=== PATIENT | male | born 1965 | race Caucasian/White ===

== ENCOUNTER → 2016-04-15 | Outpatient (REF) | payer BC | LOC: M LAB REF 16:26 | PROVIDERS: ATTEND Nurse Practitioner Adult Health | DX: F52.21 Male erectile disorder (principal) ==

== ENCOUNTER → 2016-04-16 | Outpatient (REF) | payer BC | LOC: M LAB REF 16:24 | PROVIDERS: ATTEND Nurse Practitioner Adult Health | DX: N39.0 Urinary tract infection, site not specified (principal) ==

== ENCOUNTER → 2016-10-12 | Outpatient (REF) | payer BC, OTHER ==
[2016-10-14 00:06] LABS: Lyme Disease IgG/IgM Antibodie <0.91 ISR (0.00-0.90); Lyme Disease IgM Ab Quantitati <0.80 index (0.00-0.79)
== END ==
LOC: M LAB REF 13:28
PROVIDERS: ATTEND Nurse Practitioner Adult Health
DX: Z11.59 Encounter for screening for other viral diseases (principal); W57.XXXA Bitten or stung by nonvenomous insect and other nonvenomous arthropods, initial encounter; X58.XXXA Exposure to other specified factors, initial encounter; Y93.9 Activity, unspecified; Y92.9 Unspecified place or not applicable; Y99.8 Other external cause status

== ENCOUNTER → 2017-12-01 | Outpatient (REF) | payer OTHER ==
[2017-12-01 14:42] LABS: FERRITIN 144 NG/ML (26-388); IRON (FE) 199 UG/DL (65-175)
[2017-12-03 17:22] LABS: PERCENT SATURATION 56.5 % (19.7-50.0); TOTAL IRON BINDING CAPACITY 352 UG/DL (250-450)
== END ==
LOC: M LAB REF 13:49
DX: R74.0 Nonspecific elevation of levels of transaminase and lactic acid dehydrogenase [LDH] (principal)

== ENCOUNTER → 2018-01-07 | Outpatient (REF) | payer OTHER ==
[2018-01-07 17:32] LABS: IRON (FE) 117 UG/DL (65-175)
== END ==
LOC: M LAB REF 16:59
DX: R79.0 Abnormal level of blood mineral (principal)

== ENCOUNTER → 2018-05-24 | Outpatient (CLI) | payer OTHER ==
[~2018-05-24] MED LIST: ASPI1TAB PO; LISI-538 PO; MOTR200T44 PO; TURM500C PO
--- NOTE | 2018-05-25 02:43 | REP ---
Clinical: Right hand pain. Technique: AP, lateral, bilateral oblique views of the right hand. Findings: Osseous structures, joint spaces, and surrounding soft tissues are normal for age. No overt arthritic changes are appreciated. No acute fracture dislocation. No periarticular or soft tissue calcifications identified. No subcutaneous emphysema or radiodense foreign body. Impression: Age-appropriate right hand radiographs. No obvious acute pathology by radiographic evaluation. Electronically Signed by Garrett Calhoun MD 05/25/2018 02:35 A
== END ==
LOC: M RAD 12:47
PROVIDERS: ATTEND Internal Medicine
DX: M79.641 Pain in right hand (principal)

== ENCOUNTER 2018-07-15 02:51 | Emergency (ER) | payer OTHER ==
[~2018-07-15] VITALS: Ht 182.9 cm; Wt 85.0 kg
[~2018-07-15 02:51] MED LIST changes: -ASPI1TAB PO; +ASPI81TA26 PO
[2018-07-15] MEDS ORDERED: VITAD1000T PO (02:55)
[2018-07-15 03:26] LABS: BASO % 0.6 % (0.0-1.0); EOS # 0.5 10^3/uL (0.0-0.50); HEMATOCRIT 45.3 % (42.0-52.0); HEMOGLOBIN 14.5 g/dl (13.5-17.5); LYMPH % 43.8 % (24.0-44.0); MEAN CORPUSCULAR HEMOGLOBIN 30.5 pg (27.0-33.0); MEAN CORPUSCULAR VOLUME 95.2 fl (80.0-96.0); MONO # 0.8 10^3/uL (0.0-0.8); MONO % 11.6 % (0.0-5.0); NEUTROPHILS # 2.5 10^3/uL (1.8-7.7); NEUTROPHILS % 36.9 % (36.0-66.0); PLATELET COUNT, AUTOMATED 275 10^3/uL (150-450); RED BLOOD COUNT 4.76 10^6/uL (4.30-6.10); WHITE BLOOD COUNT 6.9 10^3/uL (4.0-10.0)
[2018-07-15] MEDS ORDERED: ONDANSETRON 4MG/2ML VIAL (J2405) IV ONE (03:30)
[2018-07-15] MEDS ORDERED: MORPHINE 4 MG/ML 1ML VIAL/SYRINGE (J2270) IV ONE (03:30)
[2018-07-15 03:54] LABS: ALBUMIN 4.3 GM/DL (3.2-5.2); ALT/SGPT 34 U/L (12-78); BILIRUBIN,DIRECT < 0.1 MG/DL (0.0-0.2); BILIRUBIN,TOTAL 0.2 MG/DL (0.2-1.0); BLOOD UREA NITROGEN 26 MG/DL (7-18); CALCIUM LEVEL 10.2 MG/DL (8.5-10.1); CARBON DIOXIDE LEVEL 29 MEQ/L (21-32); CHLORIDE LEVEL 107 MEQ/L (98-107); CREATININE FOR GFR 1.25 MG/DL (0.70-1.30); GLOMERULAR FILTRATION RATE > 60.0 (>56); GLUCOSE, FASTING 123 MG/DL (70-100); LIPASE 359 U/L (73-393); POTASSIUM SERUM 3.9 MEQ/L (3.5-5.1); SODIUM LEVEL 143 MEQ/L (136-145); TOTAL PROTEIN 7.5 GM/DL (6.4-8.2)
[2018-07-15] MEDS ORDERED: KETOROLAC 30 MG/ML VIAL (J1885) IV ONE (04:15)
--- NOTE | 2018-07-15 05:05 | REPVR ---
EXAM: CT Abdomen and Pelvis Without Contrast EXAM DATE/TIME: 07/15/2018 4:13 AM CLINICAL HISTORY: 52 years old, male; Abdominal pain; Flank; Right; Additional info: Flank pain, hematuria TECHNIQUE: Imaging protocol: Axial computed tomography images of the abdomen and pelvis without contrast. Coronal and sagittal reformatted images were created and reviewed. Radiation optimization: All CT scans at this facility use at least one of these dose optimization techniques: automated exposure control; mA and/or kV adjustment per patient size (includes targeted exams where dose is matched to clinical indication); or iterative reconstruction. COMPARISON: No relevant prior studies available. FINDINGS: ABDOMEN: Liver: Normal. No mass. Gallbladder and bile ducts: Status post cholecystectomy. There is no biliary ductal dilatation. Pancreas: Normal. No ductal dilation. Spleen: Normal. No splenomegaly. Adrenals: Normal. No mass. Kidneys and ureters: There is a 2 mm stone in the distal right ureter with moderate proximal hydronephrosis and hydroureter. There is a 4 mm right upper renal pole stone. There is a 1.8 cm posterior right renal lesion measuring higher than simple fluid and apparently isodense to the kidney parenchyma. There is a focal mild contour deformity in the right kidney (axial image 44). There is focal contour deformity in the left kidney on axial image 35 possibly a cyst. There is a 1.2 cm left renal cyst (axial image 36). Stomach and bowel: There is suggestion of mild colonic wall thickening. Appendix: No evidence of appendicitis. PELVIS: Bladder: The urinary bladder is underdistended limiting its evaluation. Reproductive: Unremarkable as visualized. ABDOMEN and PELVIS: Intraperitoneal space: Normal. No free air. No significant fluid collection. Bones/joints: There is T11-T12 posterior disc osteophyte complex formation. Soft tissues: Unremarkable. Vasculature: Normal. No abdominal aortic aneurysm. Lymph nodes: Normal. No enlarged lymph nodes. IMPRESSION: 1. 2 mm distal right ureteral stone with moderate proximal hydronephrosis. 2. 4 mm right upper renal pole stone. 3. 1.2 cm simple appearing left renal cyst. 4. 1.8 cm posterior right renal lesion measuring higher than simple fluid density in addition to 2 focal areas of contour deformities in the right and left kidneys. Further characterization with MRI with contrast is suggested. 5. Status post cholecystectomy. 6. Questionable mild colonic wall thickening without pericolonic inflammatory changes. A mild inflammatory process/atelectasis cannot be completely excluded. Correlate with patient's clinical history. COMMENT: Consistent with the [employer]'s Incidental Findings Committee Report (J Am Teresa Radiol 2010): Unless the patient's specific circumstances suggest otherwise, any liver lesion 0.5 cm or less, any cystic kidney lesion less than 1.0 cm, and/or any adrenal lesion 1.0 cm or less not otherwise characterized in this report as possessing suspicious or indeterminate imaging features is/are highly likely to be benign and do not require follow-up imaging or biopsy. Electronically signed by: Ryan Rivera On 07/15/2018 05:04:57 AM
[2018-07-15] MEDS ORDERED: OXYCODONE/APAP 5MG/325MG(BULK FOR ED) 1 TABLET PO ONE (05:30)
[2018-07-15] MEDS ORDERED: PERC5TAB12 PO (05:31)
[2018-07-15] MEDS ORDERED: KETO10TAB PO (05:31)
[2018-07-15] MEDS ORDERED: FLOM0.4C39 PO (05:50)
[2018-07-15 05:53] VITALS: BP 169/80
[2018-07-15] MEDS ORDERED: TAMSULOSIN 0.4 MG CAP PO ONE (06:00)
== END 2018-07-15 05:55 | disposition home or self-care (01) ==
LOC: M ED 02:51
DX: N20.1 Calculus of ureter (principal); I10 Essential (primary) hypertension
CPT/HCPCS: 74176; 80048; 80076; 81001; 83690; 85025; 93041; 96374; 96375; 99284; J1885; J2270; J2405

== ENCOUNTER → 2018-07-29 | Outpatient (CLI) | payer OTHER ==
[~2018-07-29] MED LIST changes: +FLOM0.4C39 PO; +KETO10TAB PO; +PERC5TAB12 PO; +PROHANCE 279.3MG/ML 15ML VIAL (A9576) As Ordered ONE; +PROHANCE 279.3MG/ML 5ML VIAL (A9576) As Ordered ONE; +VITAD1000T PO
--- NOTE | 2018-07-29 12:59 | REP ---
MRI KIDNEYS WITH AND WITHOUT CONTRAST: COMPARISON: CT 07/15/2018. Multiple sequences obtained in the axial and coronal planes prior to and following the intravenous administration of [address] showed a dense nodule in the posterior right kidney. There is a nodule in the posterior mid right kidney measuring 1.7 cm in diameter. This demonstrates mixed heterogeneous mildly hyperintense signal on T2-weighted images. It is hyperintense on the T1 FS precontrast images. This does not enhance. This is most consistent with a hemorrhagic or proteinaceous cyst. In addition, there are two tiny subcentimeter cortical cysts in the upper pole of the right kidney and one in the lower pole of the right kidney. There is a simple nonenhancing 9 mm cyst in the upper pole of the left kidney and another measuring 1.3 cm in diameter in the posterior mid left kidney, with a subcentimeter cyst posterolaterally in the mid left kidney. There is no hydronephrosis. Otherwise the visualized liver, spleen, adrenals and pancreas appear unremarkable. I see no adenopathy or free fluid in the visualized abdomen. IMPRESSION: A hyperdense nodule in the posterior right kidney corresponds to a hemorrhagic or proteinaceous cyst by MRI, with no suspicious characteristics or enhancement. Other small bilateral simple renal cysts are identified. Electronically Signed by Prashant [place]l MD 08/02/2018 09:58 A
== END ==
LOC: M RAD 10:00
PROVIDERS: ATTEND Nurse Practitioner Adult Health
DX: N28.1 Cyst of kidney, acquired (principal); N20.0 Calculus of kidney; D49.511 Neoplasm of unspecified behavior of right kidney; D49.512 Neoplasm of unspecified behavior of left kidney; Z90.49 Acquired absence of other specified parts of digestive tract
CPT/HCPCS: 74183; A9576

== ENCOUNTER → 2019-04-15 | Outpatient (CLI) | payer OTHER ==
[~2019-04-15] MED LIST changes: +CHOL100029 PO; -PROHANCE 279.3MG/ML 15ML VIAL (A9576) As Ordered ONE; -PROHANCE 279.3MG/ML 5ML VIAL (A9576) As Ordered ONE; -VITAD1000T PO
--- NOTE | 2019-04-15 10:48 | REP ---
Clinical: thoracic pain. Technique: AP, lateral, and swimmers views. Findings: Alignment and kyphosis is maintained. Vertebral bodies intact. No acute fracture / compression injury or subluxation. No degenerative changes. Paravertebral soft tissues are normal. Impression: Normal thoracic spine series. Lateral Electronically Signed by Garrett Calhoun MD 04/15/2019 10:40 A
--- NOTE | 2019-04-15 10:48 | REP ---
Clinical: Back pain . Technique: AP, lateral, bilateral oblique, and coned-down views. Findings: Alignment and lordosis is maintained. The vertebral bodies including transverse process and spinous processes are intact and normal. There is no evidence for acute fracture / compression injury or subluxation. No evidence for spondylolysis or spondylolisthesis. No significant degenerative change is noted. Impression: Normal lumbosacral spine radiograph series. Electronically Signed by Garrett Calhoun MD 04/15/2019 10:39 A
== END ==
LOC: M RAD 10:15
PROVIDERS: ATTEND Nurse Practitioner Adult Health
DX: M54.9 Dorsalgia, unspecified (principal)

== ENCOUNTER → 2019-08-10 | Outpatient (REF) | payer OTHER | LOC: M LAB REF 17:36 | PROVIDERS: ATTEND Dermatology | DX: D22.5 Melanocytic nevi of trunk (principal) ==

== ENCOUNTER → 2019-12-06 | Outpatient (CLI) | payer OTHER | LOC: M LAB 07:48 | PROVIDERS: ATTEND Urology | DX: Z12.5 Encounter for screening for malignant neoplasm of prostate (principal) ==

== ENCOUNTER → 2021-05-09 | Outpatient (CLI) | payer OTHER ==
[~2021-05-09] MED LIST changes: -LISI-538 PO; +LISI20TA33 PO
== END ==
LOC: M WUC 15:13
PROVIDERS: ATTEND Nurse Practitioner Adult Health
DX: M25.541 Pain in joints of right hand (principal); M25.542 Pain in joints of left hand

== ENCOUNTER 2021-10-27 01:13 | Emergency (ER) | payer BC, OTHER ==
[~2021-10-27] VITALS: Ht 182.9 cm; Wt 88.0 kg
[2021-10-27] MEDS ORDERED: hydrALAZINE 20MG/ML 1ML VIAL (J0360 PER 20MG) IV ONE (01:40)
[2021-10-27 01:42] LABS: BASO # 0.1 10^3/uL (0.0-0.2); BASO % 0.9 % (0.0-1.0); EOS # 0.4 10^3/uL (0.0-0.5); EOS % 6.8 % (0.0-3.0); HEMATOCRIT 43.7 % (42.0-52.0); HEMOGLOBIN 14.8 g/dl (13.5-17.5); LYMPH # 2.3 10^3/uL (1.5-5.0); LYMPH % 40.8 % (24.0-44.0); MEAN CORPUSCULAR HEMOGLOBIN 31.6 pg (27.0-33.0); MEAN CORPUSCULAR HGB CONC 33.9 g/dl (32.0-36.5); MEAN CORPUSCULAR VOLUME 93.4 fl (80.0-96.0); MONO # 0.8 10^3/uL (0.0-0.8); MONO % 13.2 % (2.0-8.0); NEUTROPHILS # 2.2 10^3/uL (1.5-8.5); PLATELET COUNT, AUTOMATED 267 10^3/uL (150-450); RED BLOOD COUNT 4.68 10^6/uL (4.30-6.10); WHITE BLOOD COUNT 5.7 10^3/uL (4.0-10.0)
[2021-10-27 02:05] VITALS: BP 174/88
[2021-10-27 02:13] LABS: ALBUMIN 4.1 GM/DL (3.2-5.2); ALT/SGPT 49 U/L (12-78); BILIRUBIN,DIRECT < 0.1 MG/DL (0.0-0.2); BILIRUBIN,TOTAL 0.2 MG/DL (0.2-1.0); BLOOD UREA NITROGEN 18 MG/DL (7-18); CALCIUM LEVEL 9.9 MG/DL (8.5-10.1); CARBON DIOXIDE LEVEL 26 MEQ/L (21-32); CHLORIDE LEVEL 110 MEQ/L (98-107); CREATININE FOR GFR 1.05 MG/DL (0.70-1.30); GLOMERULAR FILTRATION RATE > 60.0 (>56); GLUCOSE, FASTING 100 MG/DL (70-100); LIPASE 235 U/L (73-393); NT-PRO BNP 9 PG/ML (<125); POTASSIUM SERUM 3.7 MEQ/L (3.5-5.1); SODIUM LEVEL 141 MEQ/L (136-145); TOTAL PROTEIN 7.4 GM/DL (6.4-8.2)
[2021-10-27 02:25] LABS: CK-MB VALUE MASS 2.5 NG/ML (<3.6); MB/CK RELATIVE INDEX 0.99 (< OR =4)
[2021-10-27 03:01] LABS: INR 0.88; PROTHROMBIN TIME 12.3 SECONDS (12.7-14.5)
[2021-10-27 03:35] VITALS: BP 154/82
== END 2021-10-27 03:54 | disposition home or self-care (01) ==
LOC: M ED 01:13
DX: R07.89 Other chest pain (principal); I10 Essential (primary) hypertension; I45.19 Other right bundle-branch block; N40.0 Benign prostatic hyperplasia without lower urinary tract symptoms; Z87.81 Personal history of (healed) traumatic fracture; Z79.82 Long term (current) use of aspirin; Z79.899 Other long term (current) drug therapy
CPT/HCPCS: 71045; 80048; 80076; 82550; 82553; 83690; 83880; 84484; 85025; 85610; 87486; 87581; 87633; 87798; 93005; 93041; 94760; 96374; 99284; J0360

== ENCOUNTER → 2022-01-01 | Outpatient (CLI) | payer BC | LOC: M LAB 10:22 | PROVIDERS: ATTEND Nurse Practitioner Family | DX: Z12.5 Encounter for screening for malignant neoplasm of prostate (principal) ==

== ENCOUNTER → 2022-02-26 | Outpatient (REF) | payer BC | LOC: M LAB REF 12:11 | PROVIDERS: ATTEND Nurse Practitioner Adult Health | DX: E83.52 Hypercalcemia (principal) ==

== ENCOUNTER → 2022-11-13 | Outpatient (REF) | payer BC | LOC: M LAB REF 16:25 | PROVIDERS: ATTEND Internal Medicine | DX: E83.52 Hypercalcemia (principal) ==

== ENCOUNTER → 2022-12-28 | Outpatient (CLI) | payer BC | LOC: M LAB 17:12 | PROVIDERS: ATTEND Nurse Practitioner Family | DX: Z12.5 Encounter for screening for malignant neoplasm of prostate (principal) ==

== ENCOUNTER → 2023-05-10 | Outpatient (REF) | payer BC | LOC: M LAB REF 12:02 | PROVIDERS: ATTEND Internal Medicine | DX: E83.52 Hypercalcemia (principal) ==

== ENCOUNTER → 2024-01-04 | Outpatient (CLI) | payer BC | LOC: M LAB 17:44 | PROVIDERS: ATTEND Nurse Practitioner Family | DX: Z12.5 Encounter for screening for malignant neoplasm of prostate (principal) | CPT/HCPCS: 36415; G0103 ==

== ENCOUNTER → 2024-01-14 | Outpatient (CLI) | payer BC | LOC: M WUC 10:41 | PROVIDERS: ATTEND Physician Assistant Medical | DX: M25.512 Pain in left shoulder (principal); Z87.81 Personal history of (healed) traumatic fracture ==

== ENCOUNTER → 2024-05-15 | Outpatient (REF) | payer BC | LOC: M LAB REF 11:59 | PROVIDERS: ATTEND Internal Medicine | DX: E83.52 Hypercalcemia (principal) ==

== ENCOUNTER → 2025-01-04 | Outpatient (CLI) | payer BC ==
[~2025-01-04] MED LIST changes: -FLOM0.4C39 PO; +TAMS-18 PO
== END ==
LOC: M LAB 17:02
PROVIDERS: ATTEND Nurse Practitioner Family
DX: Z12.5 Encounter for screening for malignant neoplasm of prostate (principal)
CPT/HCPCS: 36415; G0103

== ENCOUNTER → 2025-02-10 | Outpatient (CLI) | payer BC ==
[2025-02-10 12:29] LABS: BASO # 0.1 10^3/uL (0.0-0.2); BASO % 0.9 % (0.0-1.0); EOS # 0.4 10^3/uL (0.0-0.5); EOS % 6.1 % (0.0-3.0); LYMPH # 1.6 10^3/uL (1.5-5.0); LYMPH % 27.5 % (24.0-44.0); MONO # 0.6 10^3/uL (0.0-0.8); MONO % 10.7 % (2.0-8.0); NEUTROPHILS # 3.2 10^3/uL (1.5-8.5); NEUTROPHILS % 54.6 % (36.0-66.0); PLATELET COUNT, AUTOMATED 311 10^3/uL (150-450)
[2025-02-10 12:57] LABS: C REACTIVE PROTEIN QUANTITATIV < 0.50 MG/DL (<1.0)
[2025-02-10 13:05] LABS: RHEUMATOID FACTOR QUANT 11.3 IU/ML (<14)
== END ==
LOC: M LAB 11:50
PROVIDERS: ATTEND Internal Medicine
DX: M13.0 Polyarthritis, unspecified (principal)